=== PATIENT | male | born 1940 | race Caucasian/White ===

== ENCOUNTER → 2017-04-05 | Day surgery (SDC) | payer MEDICARE ==
[~2017-04-05] VITALS: Ht 182.9 cm; Wt 86.0 kg
[~2017-04-05] MED LIST: BEZLOTOXUMAB IV ONE; CALC600T87 PO; DENO120V SUBQ; DEXTROSE 5% IV ONE; FERR-74 PO; FIDA200T PO; GABA-502 PO; HYDR-4003 PO; LOM PO; LOPE2TAB32 PO; PRAM0.5T3 PO; PRD5T PO; VANC125C10 PO; VENL150C98 PO; ZOLP10TA5 PO; [UNRECOGNIZED DRUG - CODE] IV; [UNRECOGNIZED DRUG - OTHER] IM
[2017-04-05 12:00] VITALS: BP 100/53; PULSE 67; RESP 16; O2SAT 97
--- NOTE | 2017-04-05 15:33 | NUR ---
Antibiotic- Patient ambulated to [facility] [place] with . Complained of 3/10 left rib discomfort that he says he has been having caused from his cancer pain. Tolerated antibiotic infusion without problems.
== END | disposition home or self-care (01) ==
LOC: MOCO 07:52 → EDSTATUS 12:00
PROVIDERS: ATTEND Internal Medicine Infectious Disease
DX: A04.7 Enterocolitis due to Clostridium difficile (principal)
CPT/HCPCS: 96365; J3590